=== PATIENT | female | born 1945 ===

== ENCOUNTER 2017-08-07 08:07 | Day surgery (SDC) | payer MEDICARE, OTHER ==
[2014-11-15 07:33] VITALS: BMI 30.5
[~2017-08-07 08:07] MED LIST: Ciprofloxacin 400mg/200ml D5W 400 MG/200 ML BAG IVPB ONE; Iohexol 240 (50 ml) ONE; Lidocaine 2% Jelly (Uro-Jet) ONE
[2017-08-07] MEDS ORDERED: Midazolam 2 MG/2 ML VIAL ONE (09:13)
[2017-08-07] MEDS ORDERED: Propofol 10 mg/ml Inj (20 ML) ONE (09:14)
[2017-08-07] MEDS ORDERED: ePHEDrine 50 mg/ml Inj ONE (09:55)
[2017-08-07] MEDS ORDERED: HYDROmorphone 0.5 mg/0.5 ml ISec IVP PRN (10:44)
[2017-08-07] MEDS ORDERED: Lactated Ringer's 1,000 ML IV ONE (11:30)
[2017-08-07 12:07] VITALS: RESP 18; O2SAT 96
[2017-08-07 12:25] VITALS: BP 119/58; PULSE 61; TEMP 97.8
--- NOTE | 2017-08-07 15:00 | RAD ---
PROCEDURE: Intraoperative Fluoroscopy. HISTORY: LT URETERAL STONE FINDINGS: Fluoroscopic assistance was provided. Fluoroscopy time = 21.8 seconds. Radiation dose = 0.94888 mGy. Please refer to the operative report for additional details.
--- NOTE | 2017-08-10 15:48 | RAD ---
HISTORY: LT URETERAL STONE COMPARISON: No prior. FINDINGS: BOWEL: A single abdominal radiograph is submitted labeled last film. The bowel gas pattern is unremarkable. There is mild retained feces. There is a 3 mm mid left renal calculus. A left ureteral stent is noted. There is a 3 mm calculus adjacent to the distal aspect of the left ureteral stent which does not appears prominent as on prior examination. No other abnormal intra-abdominal calcifications are appreciated. No other abnormal intra-abdominal calcifications are appreciated. BONES: Normal. OTHER FINDINGS: None. IMPRESSION: Left ureteral stent. Left renal calculus. Distal left ureteral calculus adjacent to ureteral stent.
--- NOTE | 2017-08-15 09:09 | OP ---
PROCEDURE DATE: 08/07/2017 PREOPERATIVE DIAGNOSIS: Left ureteral stent, question previous treatment for ureteral stone. KUB revealed the stent and the possibility of stone. POSTOPERATIVE DIAGNOSIS: Left ureteral stent, question previous treatment for ureteral stone. KUB revealed the stent and the possibility of stone. PROCEDURES: Cystoscopy, ureteroscopy and laser, insertion of stent. SURGEON: Douglas Scott MD DESCRIPTION OF PROCEDURE: While the patient in lithotomy position, genitalia was prepped and draped in sterile fashion. Cysto showed the stent in position with some calcifications around the loop in the bladder, but the bladder itself was normal. The stent was grasped, removed, Sensor wire inserted, and the stent removed. Ureteroscopy revealed stone in the mid ureter, which was large to extract, so laser was done, and the stone was moving up because of the dilated ureter and because of the previous stent. Even the head was up during all the treatment, still the stone was moving and it reached the upper part of the ureter before it fragmented well. There was one piece that went up to the kidney, but all the pieces were smaller than 2 to 3 mm. After removing the scope, a double-J stent was inserted and x-ray was taken. The patient tolerated the procedure well and was transferred to the recovery room in stable condition. We will remove the stent end of following week. Douglas Scott MD
== END 2017-08-07 12:30 | disposition home or self-care (01) ==
LOC: C.SDS 08:07
PROVIDERS: ATTEND Specialist
DX: N20.2 Calculus of kidney with calculus of ureter (principal); Z46.6 Encounter for fitting and adjustment of urinary device; I25.10 Atherosclerotic heart disease of native coronary artery without angina pectoris; I10 Essential (primary) hypertension; Z98.890 Other specified postprocedural states; Z79.899 Other long term (current) drug therapy
CPT/HCPCS: 52356; 74018; C1769; C2617; J0744; J7120